=== PATIENT | male | born 1975 | race African-American/Black ===

== ENCOUNTER 2018-05-01 06:41 | Emergency (ER) | payer SELFPAY ==
[~2018-05-01] VITALS: Ht 177.8 cm; Wt 86.2 kg
--- NOTE | 2018-05-01 06:50 | NUR ---
BBRA FROM HOME C/O LEFT SIDED TINGLING SENSATION, RESOLVED WITHIN 5 MINS PRIOR TO EMS ARRIVAL. RR EVEN AND UNLABORED. PENDING MD CABA.
--- NOTE | 2018-05-01 07:06 | NUR ---
PAGED DR REID
--- NOTE | 2018-05-01 07:40 | NUR ---
PATIENT TRANSPORTED FOR CT.
[2018-05-01 07:42] LABS: HEMATOCRIT 40 % (39-51); HEMOGLOBIN 13.4 g/dL (13.5-17.5); MEAN CORPUSCULAR HEMOGLOBIN 30 PG (26.0-33.0); MEAN CORPUSCULAR VOLUME 89 fL (80-96); RED BLOOD CELL COUNT(AUTO) 4.49 MIL/uL (4.5-6.0); WHITE BLOOD COUNT (AUTO) 3.8 K/uL (4.3-11.0)
[2018-05-01 07:43] LABS: BASOPHILS % (AUTO) 0.9 % (0.0-2.0); EOSINOPHILS % (AUTO) 3.5 % (0.0-6.0); LYMPHOCYTES % (AUTO) 42.8 % (20.0-44.0); MEAN CORPUSCULAR HGB CONC 34 g/dl (31.0-36.0); MONOCYTES % (AUTO) 8.4 % (2.0-12.0); NEUTROPHILS % (AUTO) 44.4 % (43.0-81.0); PLATELET COUNT (AUTO) 174 /CMM (150-450); RDW COEFFICIENT OF VARIATION 12.1 (11.5-15.0)
[2018-05-01 07:45] LABS: INR 0.98 (0.87-1.13)
[2018-05-01 07:47] LABS: CALCIUM, SERUM 9.5 mg/dL (8.5-10.1); CREATININE 1.3 mg/dL (0.6-1.3); POTASSIUM 3.9 mmol/L (3.5-5.1)
--- NOTE | 2018-05-01 08:28 | NUR ---
PAGED DR REID.
[2018-05-01] MEDS ORDERED: ASPIRIN 81 MG TAB.CHEW PO ONE (08:30)
[2018-05-01] MEDS ORDERED: ASPIRIN 81 MG TAB.CHEW ONE (08:44)
--- NOTE | 2018-05-01 08:45 | NUR ---
IV removed. Catheter intact and site benign. Pressure and 4x4 applied to site. No bleeding noted.Patient discharged to home in stable condition. Written and verbal after care instructions given. Patient verbalizes understanding of instruction.
[2018-05-01 08:46] VITALS: BP 128/80
== END 2018-05-01 08:47 | disposition home or self-care (01) ==
LOC: ER 06:44
DX: R53.1 Weakness (principal); R20.2 Paresthesia of skin; E11.9 Type 2 diabetes mellitus without complications
CPT/HCPCS: 36415; 70450-TC; 80048-TC; 82962-TC; 85025-TC; 85730-TC; A4606; Z7610